=== PATIENT | female | born 1960 | race Caucasian/White ===

== ENCOUNTER → 2017-07-14 | Outpatient (CLI) | payer OTHER ==
[~2017-07-14] VITALS: Ht 152.4 cm; Wt 83.0 kg
[~2017-07-14] MED LIST: ADULT LOW DOSE81 MG PO; ADVIL PM CAPLE1 EACH PO; ANTACID500 MG PO; ASPIRIN EC325 M1 PO; AZOR 10-20 MG1 EACH PO; BRINTELLIX5 MG PO; BUMEX2 MG PO; CALCIUM LIQUID PO; CELEXA40 MG PO; COZAAR 50 MG TA50 M2 PO; COZAAR 50 MG TA50 MG PO; CYCLOBENZAPRINE10 MG PO; CYMBALTA30 MG PO; DEMADEX20 MG PO; EFFEXOR XR150 MG PO; EFFEXOR XR75 MG PO; FISH OIL 1,001000 M2 PO; FISH OIL 1,001000 MG PO; FUROSEMIDE 20 M20 M1 PO; FUROSEMIDE 20 M20 MG PO; GALZIN25 MG PO; HYDROCODON-ACE1 EAC5 PO; IBUPROFEN 400400 M2 PO; LASIX PO; MELATONIN3 MG PO; MELATONIN5 M4 PO; MS CONTIN15 MG PO; MULTIVITAMINS PO; NORCO 10-325 T1 EACH PO; NORCO 5-325 TA1 EACH PO; NORMAL SALINE FL5 ML; NORVASC 5 MG TAB5 MG PO; ONDANSETRON HCL4 M2 PO; OXYCODONE-APAP1 EAC6 PO; POTASSIUM CHLO20 ME1 PO; POTASSIUM20 PO; PRILOSEC40 MG PO; PROTONIX40 M2 PO; VICODIN PO; VITAMIN D34000 UNIT PO; XANAX 0.25 MG0.25 MG PO
--- NOTE | ~2017-07-14 | HPC ---
[facility] [place] [address] PAIN MANAGEMENT CONSULTATION Name: CRISTOBAL PELAYO GORDON Room #: REG [facility] [place].#: [id number] Admission: 07/14/17 Attend Phys: Reno Blackburn MD Discharge: Date of : 60 Report #: [id number] THIS REPORT FOR: //name// CC: Germán Sneed DO Reno Blackburn DATE OF SERVICE: 07/14/2017 CHIEF COMPLAINT: Chronic diffuse pain. The patient is a 56-year-old whom I am seeing today at the request of Dr. Sneed. He would like our assessment for managing her medication with chronic intractable pain. She has longstanding pain involving nearly all of her joints. I have asked her if she has seen a wind technician because by description today her diffuse arthritic pain sounds like a rheumatologic disorder, perhaps even polymyalgia rheumatica. She says she has started Dr. Dukes. She has been offered methotrexate in the past, but found no benefit. She has not taken a biologic. She says she does not want to continue seeing Dr. Dukes, but I have suggested that she find another wind technician to help manage these pains. This may be well psoriatic arthritis, although she has no rashes at this time consistent. She describes herself as an active person. She has tried other medications; however, nonsteroidal anti-inflammatory drugs are contraindicated and she has been told by her hotel recreational facilities manager, Dr. Fowler, that she should not take them. She also has a history of gastritis and has had esophageal reflux with narrowing and has required dilatation. For that reason, she has been placed on opioid pain medication as a considerable lower risk for toxicity due to risks of the anti-inflammatories. Prior to that, she was tried on Cymbalta with mixed benefits and has also had trials with gabapentin. She has a history of depression and is currently on 2 antidepressants, which will be reviewed. MEDICATIONS: Hydrocodone 10/325 she takes 1 tablet every 4 hours, Cymbalta 30 mg daily, Trintellix 5 mg daily, omeprazole, potassium, multivitamins. ALLERGIES: COMPAZINE CAUSES A RASH, LATEX CAUSES SWELLING AND SHE HAD SOME RESPIRATORY ISSUES. PAST MEDICAL HISTORY: Possible psoriatic arthritis though this is not confirmed by record. She has a history of type 2 diabetes, anemia, hypertension, gastritis, esophagitis and chronic depression. She suffers from osteoarthritis. PAST SURGICAL HISTORY: Cholecystectomy, herniorrhaphy, appendectomy, tonsillectomy, hysterectomy, shoulder surgery following trauma, gastric bypass, lumbar surgery with laminectomy. She had an exploratory surgery for adhesions [address] [address] PAIN MANAGEMENT CONSULTATION Name: CRISTOBAL PELAYO KANNANKELECHI Room #: REG [facility].#: [id number] Admission: 07/14/17 Attend Phys: Reno Blackburn MD Discharge: Date of : 60 Report #: [id number] causing blockage of the intestine. SOCIAL HISTORY: She denies use of tobacco or alcohol. She is . 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 She has had to take time off from work. She is not currently seeking disability benefits. REVIEW OF SYSTEMS: Completed by the patient. The 12-point review is reviewed individually with the patient. She has a history of mitral valve prolapse, loss of appetite, change in bowel movements and intermittent abdominal pain. She suffers from peptic ulcer and nocturia. She has chronic depression and has been treated with medication and counseling. PHYSICAL EXAMINATION: GENERAL: She is a pleasant 56-year-old female. She appears deconditioned. VITAL SIGNS: Her blood pressure is 137/89, heart rate 73, respirations 16, O2 sat 100%. She is 5 feet tall, 83 kg that gives her a BMI of 35.0. NEUROLOGICAL: She moves independently from sitting to standing position. She requires use of her arms to stand. She walks down the hens[place] with an antalgic gait. CHEST: Clear, without wheezing. CARDIAC: Normal with regular rhythm with no appreciable murmur. I could not hear her mitral regurgitation murmur described. ABDOMEN: Soft. EXTREMITIES: Examination of joints reveals bilateral shoulder, elbow, wrist, hip and knee pain. She also has pain in her elbows and tenderness. There are no effusions noted. There are no psoriatic rashes noted. She has minimal pain in the soft tissue to suggest fibromyalgia. IMPRESSION: Diffuse arthropathies. This may be polymyalgia rheumatica, psoriatic arthritis, I am not certain. I would like for her to follow up with another wind technician if she does not want to see Dr. Dukes and I have recommended Dr. Ritchie Rose. We discussed at length her use of opioid medication. She uses medications effectively; however, her current MME use is at 60 morphine milligram equivalents per day. I have agreed to provide her with that dose, but will work to titrate her dose below 50 MME. The importance of safeguarding all medications was reviewed. The issues of the CDC guideline to provide us with guidance were reviewed. An initial buccal drug screen was performed today and will be reviewed before her next visit. One month of medication was provided. We talked about our written opioid agreement. Informed consent for opioid treatment and medication treatment was reviewed in detail, the patient signed the agreement. I will contact with Dr. Sneed. She understands that no opioids will be received from other physicians. [address] [address] PAIN MANAGEMENT CONSULTATION Name: GITACRISTOBAL GORDON Room #: ELISE Hendrix#: [id number] Admission: 07/14/17 Attend Phys: Reno Blackburn MD Discharge: Date of : 60 Report #: [id number] Followup visit planned in 1 month. <ELECTRONICALLY SIGNED> By: Reno Blackburn MD 07/27/17 1640 [id number] Reno Blackburn MD /nt
[2017-07-14 13:43] VITALS: BP 137/89
== END ==
LOC: PAIN 01-10 07:12
DX: L40.50 Arthropathic psoriasis, unspecified (principal); M35.3 Polymyalgia rheumatica; G89.29 Other chronic pain; E11.9 Type 2 diabetes mellitus without complications; I10 Essential (primary) hypertension; F32.9 Major depressive disorder, single episode, unspecified

== ENCOUNTER → 2017-08-08 | Outpatient (CLI) | payer OTHER ==
[~2017-08-08] VITALS: Ht 152.4 cm; Wt 83.7 kg
[~2017-08-08] MED LIST changes: +ALDACTONE50 MG PO; +FOLIC ACID1 MG PO; +LASIX 20 MG TAB20 MG PO; +METHOTREXATE 22.5 MG PO; +VITAMIN D50000 UNIT PO
--- NOTE | ~2017-08-08 | HPC ---
[facility] [place] [address] [address] PAIN MANAGEMENT CONSULTATION Name: CRISTOBAL PELAYO KANNANKELECHI Room #: REG [facility].#: [id number] Admission: 08/08/17 Attend Phys: Reno Blackburn MD Discharge: Date of : 60 Report #: [id number] THIS REPORT FOR: //name// CC: Dr. Germán Blackburn DATE OF SERVICE: 08/08/2017 Followup visit for chronic pain. The patient returns to Pain Clinic today. I have agreed to provide her medication under terms of a written agreement. She has signed a contract or an agreement today. Her pain medication has been helpful in allowing her to remain functional. 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 She is hopeful that she can continue to do so with continued use of medication. I reviewed the discussion from the dictation of 07/14/2017. She signed an opioid agreement. We have decided to transition her from hydrocodone 10/325 six tablets daily to oxycodone 7.5 four tablets daily for a total of 30 morphine milligram equivalents. This will be equivalent to 45 morphine milligram equivalence, which will be a reduction from her daily dose of hydrocodone, which is currently calculated at 60 morphine milligram equivalents. Plan to see her back in the Pain Clinic to assess this change in medication and a followup visit is scheduled. Prescriptions were provided along with dated release. We will assess her progress at that time. <ELECTRONICALLY SIGNED> By: Reno Blackburn MD 09/05/17 1408 1612 1945 Reno Blackburn MD /nt
[2017-08-08 11:22] VITALS: BP 149/84
== END ==
LOC: PAIN 07:18
DX: G89.29 Other chronic pain (principal)

== ENCOUNTER → 2017-09-05 | Outpatient (CLI) | payer OTHER ==
[~2017-09-05] VITALS: Ht 152.4 cm; Wt 84.3 kg
[~2017-09-05] MED LIST changes: -ALDACTONE50 MG PO; -FOLIC ACID1 MG PO; -LASIX 20 MG TAB20 MG PO; -METHOTREXATE 22.5 MG PO; -VITAMIN D50000 UNIT PO
--- NOTE | ~2017-09-05 | HPC ---
[facility] [place] [address] [place] [address] PAIN MANAGEMENT CONSULTATION Name: CRISTOBAL PELAYO Room #: REG [facility].#: [id number] Admission: 09/05/17 Attend Phys: Reno Blackburn MD Discharge: Date of : 60 Report #: [id number] THIS REPORT FOR: //name// CC: Germán Blackburn DATE OF SERVICE: 09/05/2017 Followup visit for chronic osteoarthritis pain. Hugo White returns to pain clinic today for 1-month followup visit. I recently initiated her on an opioid agreement with our clinic. We have completed a urine drug screen which shows appropriate for previous medicine hydrocodone. We transitioned her off hydrocodone to oxycodone 7.5 four tablets a day for a total of 30 mg or 45 morphine milligram equivalents. She is doing okay with that. Her pain score is a 7, constant aching, but she has been able to continue to work and continue with household activities. Pain is made worse with weather, moving and she is grateful for the pain medication and ice, both of which aid in relieving some pain. Other problems include hypertension. She has some problems with gastritis and history of ulcers and is cautious about nonsteroidal anti-inflammatory drugs. She suffered from a peptic ulcer at one point. She has multiple joint diseases and is going to see Dr. Ritchie celaya about her psoriatic arthritis. She suffered from depression, but seems fine today. She is not currently on a treatment. HOME MEDICATIONS: Reviewed and reconciled from the electronic medical record. There have been no changes. PHYSICAL EXAMINATION: GENERAL: Pleasant, alert and oriented, without signs of depression, anxiety or overmedication. VITAL SIGNS: Blood pressure 139/79, heart rate 76, respirations 16. BMI is 36.3. Multiple joint arthralgias reported. IMPRESSION: 1. Chronic pain with diffuse arthropathies. 2. Management of high risk medications under terms of written opioid agreement within the CDC guidelines under 50 morphine milligram equivalents. 3. History of depression, anxiety. PLAN: Medications were renewed at current doses described above for 1 month and [facility] [address] [place] [address] PAIN MANAGEMENT CONSULTATION Name: GITACRISTOBAL Room #: REG [facility] Hendrix#: [id number] Admission: 09/05/17 Attend Phys: Reno Blackburn MD Discharge: Date of : 60 Report #: [id number] then refill prescription provided at 4 and 8 weeks. Followup visit planned in 90 days. By: [id number] Reno Blackburn MD /nt
[2017-09-05 11:12] VITALS: BP 139/79
== END ==
LOC: PAIN 07:16
DX: M19.90 Unspecified osteoarthritis, unspecified site (principal); F11.90 Opioid use, unspecified, uncomplicated; F32.9 Major depressive disorder, single episode, unspecified; F41.9 Anxiety disorder, unspecified

== ENCOUNTER → 2017-11-03 | Outpatient (CLI) | payer OTHER ==
[~2017-11-03] VITALS: Ht 154.9 cm; Wt 84.8 kg
[~2017-11-03] MED LIST changes: +FOLIC ACID1 MG PO; +METHOTREXATE 22.5 MG PO; +VITAMIN D50000 UNIT PO
--- NOTE | ~2017-11-03 | HPC ---
[facility] [place] [address] PAIN MANAGEMENT CONSULTATION Name: CRISTOBAL PELAYO Room #: REG [facility].#: [id number] Admission: 11/03/17 Attend Phys: Reno Blackburn MD Discharge: Date of : 60 Report #: [id number] THIS REPORT FOR: //name// CC: JAJA Blackburn DATE OF SERVICE: 11/03/2017 Followup visit for chronic osteoarthritis and psoriatic arthritis. The patient returns to pain clinic today in followup for her oxycodone. I provided with 4 oxycodone 7.5 tablets per day for a total of 30 oxycodone mg or 45 MME. She is doing reasonably well. Her pain scores with medication 4/10. This is manageable. 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 She works 4 hours a week. On days where she has overdone it, she sometimes cannot get out of bed that happens about once every 1-[address] Rose who diagnosed psoriatic arthritis and began her on methotrexate. We discussed potential benefits and risks of this medication. We outlined the hepatorenal and pulmonary toxicities as well as the hematopoietic effects of methotrexate. Dr. Rose will follow these potential side effects and complications of the medication carefully. We also discussed the biologics which may be helpful for her in the future. We talked importantly about her CDC guidelines and opioid agreement. She will safeguard all medications as discussed. She has no side effects. She is grateful for the pain relief that she receives. She has no evidence of addiction or risks of addiction. Her ORT score is 1 for depression. Pain is mostly in her joints and is diffuse involving almost all of her joints, particularly large joints. MEDICATIONS AND ALLERGIES: Reviewed and reconciled. They are on the electronic medical record. PHYSICAL EXAMINATION: Blood pressure 106/79, heart rate 68. BMI is 35.4. She is pleasant, alert and oriented, without signs of depression, anxiety or overmedication. Multiple joints are tender including shoulders, hands, elbows, knees, hips. She walks normally. She is not a fall risk. IMPRESSION: 1. Psoriatic arthritis 2. History of osteoarthritis. 3. Management of high risk medication oxycodone under terms of an opioid [address] [address] PAIN MANAGEMENT CONSULTATION Name: CRISTOBAL PELAYO GORDON Room #: REG [facility].#: [id number] Admission: 11/03/17 Attend Phys: Reno Blackburn MD Discharge: Date of : 60 Report #: [id number] agreement. She is on 45 morphine milligram equivalents a day with oxycodone 7.5/325 four tablets daily. 4. History of depression and anxiety, currently in remission. She has been aided by [facility]. Followup visit planned in 3 months. Dated prescriptions were released. Reviewed the results of her buccal drug screen from 07/15/2017. By: [id number] MD mejia Hunter
[2017-11-03 10:04] VITALS: BP 106/79
== END ==
LOC: PAIN 09-27 13:40
DX: L40.50 Arthropathic psoriasis, unspecified (principal); Z79.899 Other long term (current) drug therapy

== ENCOUNTER → 2018-01-23 | Outpatient (CLI) | payer OTHER ==
[~2018-01-23] VITALS: Ht 154.9 cm; Wt 88.3 kg
--- NOTE | ~2018-01-23 | HPC ---
[facility] [address] [address] PAIN MANAGEMENT CONSULTATION Name: CRISTOBAL PELAYO Room #: REG [facility].#: [id number] Admission: 01/23/18 Attend Phys: Reno Blackburn MD Discharge: Date of : 60 Report #: [id number] THIS REPORT FOR: //name// CC: Germán Blackburn DATE OF SERVICE: 01/23/2018 Followup visit for chronic pain. The patient is here today in followup for medication management of her chronic joint pain. She has psoriatic arthritis and also carries a diagnosis of osteoarthritis. She follows with Dr. Ritchie Rose who manages some of her medication and because of her use of opioids she is seen in our clinic to be treated under terms of written opioid agreement. She reports that she continues to have daily pain at an intensity of about 4-5 with medication. She is grateful for the relief that it provides her to drop it to this number. 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 Without the benefit of good pain control offered by her medication she does not feel that she would be able to work at all. She denies any significant side effects, even constipation is not an issue. She understands the importance of managing her medicine carefully and diversion of medication has been felt to be the primary source of illegal use of medication. She keeps all of her medication under lock and husain and is respectful of the benefits as well as the risks that they provide. She describes her pain as generalized through many joints, particularly involving her hips and knees. When the pain is severe, it often involves her legs and she has trouble with ambulation. All medications are reviewed and reconciled, there have been no significant changes. Allergies also reviewed. There has been no interval history. No hospitalizations. No Emergency Room visits. We reviewed her [facility] PDMP, which shows that all of her medications and opioids have been provided through our clinic since August. I did note that Dr. Linton, her surgeon, provided her with 7 days of hydrocodone in the perioperative period. There have been no other long-term prescribers. [address] [address] PAIN MANAGEMENT CONSULTATION Name: CRISTOBAL PELAYO Room #: REG [facility]#: [id number] Admission: 01/23/18 Attend Phys: Reno Blackburn MD Discharge: Date of : 60 Report #: [id number] I reviewed with her today the CDC guidelines and she is receiving a total of 45 morphine milligram equivalents. PHYSICAL EXAMINATION: She is pleasant, alert and oriented, without signs of overmedication or depression or anxiety. Her blood pressure is 113/73, heart rate 70. She is 5 feet 1 inch with a BMI of 36.8. Weight loss discussed. She moves and ambulates without difficulty. She has tenderness throughout multiple joints, particularly large joints, shoulders, elbows, knees and hips. Range of motion is adequate. IMPRESSION: 1. Psoriatic arthritis. 2. Osteoarthritis. 3. Management of high risk medications under terms of written opioid agreement. I have reviewed her [address] Linton in August and in June. She will not receive additional opioids outside of our practice going forward. A followup visit is scheduled in the pain clinic in 3 months. Dated prescriptions were released. By: [id number] Reno Blackburn MD /nt
[2018-01-23 09:13] VITALS: BP 113/73
== END ==
LOC: PAIN 06:56
DX: M17.0 Bilateral primary osteoarthritis of knee (principal); G89.29 Other chronic pain; L40.50 Arthropathic psoriasis, unspecified; Z79.891 Long term (current) use of opiate analgesic

== ENCOUNTER → 2018-04-03 | Outpatient (CLI) | payer OTHER ==
[~2018-04-03] VITALS: Ht 154.9 cm; Wt 90.4 kg
[~2018-04-03] MED LIST changes: +ALDACTONE50 MG PO; +LASIX 20 MG TAB20 MG PO
--- NOTE | ~2018-04-03 | HPC ---
[facility] [address] [address] PAIN MANAGEMENT CONSULTATION Name: CRISTOBAL PELAYO Room #: REG [facility].#: [id number] Admission: 04/03/18 Attend Phys: Reno Blackburn MD Discharge: Date of : 60 Report #: [id number] THIS REPORT FOR: //name// CC: Germán Blackburn DATE OF SERVICE: 04/03/2018 CHIEF COMPLAINT: Followup visit for chronic abdominal pain. HISTORY OF PRESENT ILLNESS: This is followup visit for the patient is here today reporting a pain score of 7/10 with medication. Her pain today is primarily arthritic. She complains of pain in multiple joints. It is worse with cold weather. She gets relief from her pain medications, getting off her feet, resting, and using ice. CURRENT MEDICATIONS: We provide for her under terms of written agreement are oxycodone 7.5, four tablets daily. This is 30 oxycodone mg per day or 45 morphine mg equivalents. All medications were reviewed and reconciled. She has not a fall risk. She is on no blood thinning medications. She denies use of tobacco or alcohol. She has some comorbidities including non-insulin dependent diabetes, psoriatic arthritis, which is primary issue for her joint pain. She has had a history of gastritis and stomach ulcers. She was cautioned about nonsteroidal anti-inflammatory drugs. She has had previous gastric bypass. PHYSICAL EXAMINATION: GENERAL: Blood pressure 121/76, heart rate 77, BMI is 37.7. EXTREMITIES: She has diffuse tenderness involving shoulders, hips, knees and ankles. GENERAL: Her affect is pleasant with no signs of depression, anxiety or overmedication or overmedication. IMPRESSION: 1. 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 2. Management of medications under terms of an opioid agreement. PLAN: I renewed 45 morphine milligram equivalents for her in terms of oxycodone 7.5 four times daily. She has promised that she will lock her medication carefully and keep it from others. Just she and her live together. All side effects have been addressed. I reviewed her [facility] PDMP and there are no red flag [facility] [address] [place] [address] PAIN MANAGEMENT CONSULTATION Name: CRISTOBAL PELAYO GORDON [facility] [id number] Admission: 04/03/18 Attend Phys: Reno Blackburn MD Discharge: Date of : 60 Report #: [id number] entries. All opioid medications provided by myself through our clinic. Followup visit planned in 3 months. By: [id number] Reno Blackburn MD /nt
[2018-04-03 11:06] VITALS: BP 121/76
== END ==
LOC: PAIN 06:56
DX: R10.9 Unspecified abdominal pain (principal); G89.4 Chronic pain syndrome; L40.52 Psoriatic arthritis mutilans; Z79.891 Long term (current) use of opiate analgesic; Z79.899 Other long term (current) drug therapy

== ENCOUNTER → 2018-06-22 | Outpatient (CLI) | payer OTHER ==
[~2018-06-22] VITALS: Ht 154.9 cm; Wt 93.8 kg
--- NOTE | ~2018-06-22 | HPC ---
[facility] [address] [place] [address] PAIN MANAGEMENT CONSULTATION Name: CRISTOBAL PELAYO GORDON Room #: REG [facility].#: [id number] Admission: 06/22/18 Attend Phys: Reno Blackburn MD Discharge: Date of : 60 Report #: [id number] THIS REPORT FOR: //name// CC: JAJA Burciaga DATE OF SERVICE: 06/22/2018 The patient returns to pain clinic today in followup. She says that she is doing reasonably well with her medication reducing her pain score to about 6/10. She says she has multiple arthritic joints and they all hurt in this cold weather. The pain medication reduces her pain to the level that she is able to manage and perform many of her activities of daily living that are a challenge for her. She does, however, have problems with her methotrexate. Since starting it she began experiencing a fog and asthenia. She feels lightheaded, fuzzy and has lack of energy. The patient also suffers from emotional problems, particularly depression. Winter is worse. The patient has a history of psoriatic arthritis for which she takes methotrexate. She has an appointment with Dr. Rose to discuss possibly going on to an immunologic agent. PHYSICAL EXAMINATION: GENERAL: She is morbidly obese. VITAL SIGNS: BMI is 39.1, blood pressure 137/96, heart rate is 72, respirations 16. EXTREMITIES: She has tenderness involving many joints. These include the large joints, shoulders, hips, knees as well as hands. There are no psoriatic plaques noted today. IMPRESSION: 1. Chronic intractable pain related to psoriasis and osteoarthritis. 2. Management of medications under terms of written opioid agreement. PLAN: She is currently taking Oxycodone 7.5 mg 4 times a day for an MME of 45. She will keep her medication under lock and husain. [facility] and there are no red flag entries. [facility] [address] [place] [address] PAIN MANAGEMENT CONSULTATION Name: CRISTOBAL PELAYO GORDON Room #: REG [facility].#: [id number] Admission: 06/22/18 Attend Phys: Reno Blackburn MD Discharge: Date of : 60 Report #: [id number] She is instructed to safeguard her medication carefully. She understands at my discretion we can perform drug screen and we will do so in the future. By: 1630 1651 Reno Blackburn MD /nt
[2018-06-22 10:51] VITALS: BP 137/96
--- NOTE | 2018-06-22 11:11 | NUR ---
Pain Clinic Assessment: 1. History of Osteoarthritis: ALL OVER History of Rheumatoid Arthritis: psoriatic arthritis 2. Height: 5 ft. 1 in. 154.9 cm. Weight: 206.8 lb. oz. 93.804 kg. Patient's BMI: 39.1 3. Vital Signs: BP: 137/96 Pulse: 72 Resp: 16 Temp: 02 Sat: 100 ECG Mon: 4. Pain Intensity: 6 5. Fall Risk: Dizziness: Y Needs help standing or walking: N Fallen in the last 3 months: Y Fall risk comments: 6. Patient on Blood Thinner: None 7. History of Hypertension: N 8. Opioid Therapy greater than 6 weeks: Y Opiate Contract Signed: 07/14/17 9. Risk Assessment Tool Provided: low-1 10. Functional Assessment Tool: 11. Recreational Drug Use: Never Drug Type: Tobacco Use: Never Smoker Tobacco Type: Amount or Packs/day: How Many Years: Alcohol Use: No Frequency: Quant:
== END ==
LOC: PAIN 07:13
DX: L40.52 Psoriatic arthritis mutilans (principal); M19.90 Unspecified osteoarthritis, unspecified site; G89.4 Chronic pain syndrome; Z79.891 Long term (current) use of opiate analgesic; Z79.899 Other long term (current) drug therapy

== ENCOUNTER → 2018-09-21 | Outpatient (CLI) | payer OTHER ==
[~2018-09-21] VITALS: Ht 154.9 cm; Wt 96.7 kg
[~2018-09-21] MED LIST changes: +XELJANZ XR11 MG PO
[2018-09-21 10:42] VITALS: BP 125/76
--- NOTE | 2018-09-21 10:54 | NUR ---
Pain Clinic Assessment: 1. History of Osteoarthritis: ALL OVER History of Rheumatoid Arthritis: psoriatic arthritis 2. Height: 5 ft. 1 in. 154.9 cm. Weight: 213.2 lb. oz. 96.707 kg. Patient's BMI: 40.3 3. Vital Signs: BP: 125/76 Pulse: 70 Resp: 16 Temp: 02 Sat: 100 ECG Mon: 4. Pain Intensity: 6 5. Fall Risk: Dizziness: N Needs help standing or walking: Y Fallen in the last 3 months: N Fall risk comments: 6. Patient on Blood Thinner: None 7. History of Hypertension: N 8. Opioid Therapy greater than 6 weeks: Y Opiate Contract Signed: 07/14/17 9. Risk Assessment Tool Provided: low-1 10. Functional Assessment Tool: 11. Recreational Drug Use: Never Drug Type: Tobacco Use: Never Smoker Tobacco Type: Amount or Packs/day: How Many Years: Alcohol Use: No Frequency: Quant: Pain Clinic Assessment: 1. History of Osteoarthritis: ALL OVER History of Rheumatoid Arthritis: psoriatic arthritis 2. Height: 5 ft. 1 in. 154.9 cm. Weight: 213.2 lb. oz. 96.707 kg. Patient's BMI: 40.3 3. Vital Signs: BP: 125/76 Pulse: 70 Resp: 16 Temp: 02 Sat: 100 ECG Mon: 4. Pain Intensity: 6 5. Fall Risk: Dizziness: N Needs help standing or walking: Y Fallen in the last 3 months: N Fall risk comments: 6. Patient on Blood Thinner: None 7. History of Hypertension: N 8. Opioid Therapy greater than 6 weeks: Y Opiate Contract Signed: 07/14/17 9. Risk Assessment Tool Provided: low-1 10. Functional Assessment Tool: 11. Recreational Drug Use: Never Drug Type: Tobacco Use: Never Smoker Tobacco Type: Amount or Packs/day: How Many Years: Alcohol Use: No Frequency: Quant:
--- NOTE | 2018-09-22 07:51 | HPC ---
[facility] [address] [place] [address] PAIN MANAGEMENT CONSULTATION Name: CRISTOBAL PELAYO GORDON Room #: [facility] [id number] Admission: 09/21/18 ������������������ Attend Phys: Renetta Sandoval Discharge: ������������������ Date of : 60 Report #: [id number] THIS REPORT FOR: //name// CC: Renetta Sneed DATE OF SERVICE: 09/21/2018 CHIEF COMPLAINT: Chronic knee pain and joint pain. HISTORY OF PRESENT ILLNESS: This is a very pleasant 57-year-old female who returns to the pain clinic today for refill of her medications. She suffers from ongoing joint pain, especially in her knees. She tells me it is aching, sharp pain, rating of a 6 today, worse with movement and activity. She tells me that medications are very helpful that work has also been very helpful for her. She does suffer from psoriatic arthritis and fibromyalgia. She does find that working, does keep her functioning better. She currently works 3-4 hours a day and enjoys this very much. She denies any problems with constipation or daytime sleepiness. She is using a cane today since she is having increasing knee pain after a trip to the zoo this week with her grandchild. She tells me that Dr. Linton gives her injections in her knees every couple of months and she is about due for one of those, she is trying to prolong a knee replacement. ALLERGIES: COMPAZINE, anxiety, LATEX. MEDICATIONS: XelJanz XR daily, oxycodone 7.5/325 p.r.n., spironolactone 50 mg daily, Lasix 20 mg b.i.d., folic acid daily, methotrexate 2.5 mg weekly, vitamin D3, Cymbalta 30 mg 3 times a day, Zofran p.r.n., Bumex 2 mg daily, potassium 20 mEq b.i.d., multivitamin daily. PQRS: 1. She suffers from psoriatic arthritis and is being treated for this. 2. Height is 5 feet 1 inch, weight is 213, BMI is 40. 3. Vital signs: Blood pressure 127/76, pulse is 70, respirations 16, oxygen sat is 100. 4. Pain score 6/10. 5. Dizziness, denies. She does use a cane for walking. has not fallen in the last 3 months. 6. The patient is not on any blood thinners. She does not take medicines for hypertension. 7. Opiate therapy was greater than 6 weeks; therefore, an opiate contract is on the chart. Her risk assessment tool is low. Her functional assessment is 48/70. 8. Recreational drug use, she denies. She is not a smoker, does not drink alcohol. [address] [address] PAIN MANAGEMENT CONSULTATION Name: CRISTOBAL PELAYO Room #: REG CL Simeon#: [id number] Admission: 09/21/18 ������������������ Attend Phys: Renetta Sandoval Discharge: ������������������ Date of : 60 Report #: [id number] We did check the prescription monitoring system on this patient. She feels appropriately with her medications. Her last prescription refill was 09/04/2018. We have not checked a drug screen in the past year and that was appropriate as well. She tells me she does safeguard her medications. PHYSICAL EXAMINATION: GENERAL: Alert and orientated, very pleasant 57-year-old female who appears her stated age. HEENT: Normocephalic, atraumatic. Extraocular eye muscles are intact. Mucous membranes are moist. EXTREMITIES: She has tenderness involving many joints, especially her knee today, left side greater than right. The patient also has tenderness in her shoulders, hips and knees and hands. There are no psoriatic plaques noted today. She does walk with a slightly antalgic gait using a cane. We reviewed the fact that opiate medications are being used to provide analgesia adequate to support activities of daily living, not attempting to achieve a specific pain score on the 0-10 Visual Analog Scale. The current opiate medications are providing sufficient analgesia to allow the patient to participate in activities of daily living. The patient is not exhibiting any aberrant behavior suggestive of drug diversion. The patient is not having any adverse reactions to medications. The patient is not suffering from daytime somnolence or mental acuity changes. The patient is managing opiate-induced constipation with appropriate yuac-azz-ibkncer agents and dietary considerations. The patient was counseled on concern for caution with operating a motor vehicle while using opiate medications. A physical exam was performed and the patient's functional status was evaluated. All patients with back pain were advised against the bed rest greater than 4 days and were advised to return to normal activities. Pain score assessment was noted and the treatment plan was reviewed with the patient. All current medications, both prescribed and OTC were reviewed and reconciled on the electronic medical record. Tobacco screening was accomplished and smoking cessation was advised when indicated. BMI was noted and diet/exercise modification was recommended for all patients following outside normal parameters. I reviewed with the patient today their responsibilities to safeguard prescription medications, reviewed their responsibility to utilize medications only as prescribed by the physician. They are to seek and receive pain medications only from 1 physician group ([facility]). They are to use 1 pharmacy and keep the clinic informed if they change pharmacies. Their responsibilities include making followup visits in a timely fashion and to avoid abrupt discontinuation of medication usage. Their responsibilities further include bringing their medications (bottles from the pharmacy with residual pills) to the visit for possible confirmation of pill counts and the patient [facility] [address] [place] [address] PAIN MANAGEMENT CONSULTATION Name: CRISTOBAL PELAYO Room #: REG CL Holly.#: [id number] Admission: 09/21/18 ������������������ Attend Phys: Renetta Sandoval Discharge: ������������������ Date of : 60 Report #: [id number] understands it is their responsibility to submit to random drug screens to ensure both that the medications prescribed are present, and that no other controlled substances are present. All prescriptions provided today were generated electronically. PLAN: 1. We discussed treatment options with the patient today. The patient is requesting a refill of her oxycodone scripts given for 7.5/325, #120; to be released today, 4-week and 8-week. The patient's morphine equivalent is 45 MME according to the CDC guidelines. 2. The patient will follow up in 3 months' time for refill of her medications. The patient seen with Dr. Reno Blackburn today who collaborated care. ��������������������������������������������� <ELECTRONICALLY SIGNED> ���������������������������������������� By: Renetta Sandoval ��������������������������������������������� 09/22/18 0751 [id number] Renetta Sandoval /nt
== END ==
LOC: PAIN 07:03
DX: G89.29 Other chronic pain (principal); M25.561 Pain in right knee; M25.562 Pain in left knee; L40.50 Arthropathic psoriasis, unspecified; Z88.1 Allergy status to other antibiotic agents; Z91.040 Latex allergy status; Z79.899 Other long term (current) drug therapy; Z79.891 Long term (current) use of opiate analgesic

== ENCOUNTER → 2018-12-27 | Outpatient (CLI) | payer OTHER ==
[~2018-12-27] VITALS: Ht 154.9 cm; Wt 90.4 kg
[2018-12-27 12:38] VITALS: BP 146/99
--- NOTE | 2018-12-27 12:42 | NUR ---
Pain Clinic Assessment: 1. History of Osteoarthritis: ALL OVER History of Rheumatoid Arthritis: psoriatic arthritis 2. Height: 5 ft. 1 in. 154.9 cm. Weight: 199.2 lb. oz. 90.357 kg. Patient's BMI: 37.7 3. Vital Signs: BP: 146/99 Pulse: 76 Resp: 18 Temp: 02 Sat: 100 ECG Mon: 4. Pain Intensity: 4-5 5. Fall Risk: Dizziness: N Needs help standing or walking: N Fallen in the last 3 months: N Fall risk comments: 6. Patient on Blood Thinner: None 7. History of Hypertension: N 8. Opioid Therapy greater than 6 weeks: Y Opiate Contract Signed: 07/14/17 9. Risk Assessment Tool Provided: low-1 10. Functional Assessment Tool: 11. Recreational Drug Use: Never Drug Type: Tobacco Use: Never Smoker Tobacco Type: Amount or Packs/day: How Many Years: Alcohol Use: No Frequency: Quant:
--- NOTE | 2018-12-28 15:57 | HPC ---
[facility] [place] [place] [address] PAIN MANAGEMENT CONSULTATION Name: CRISTOBAL PELAYO GORDON Room #: [facility] [id number] Admission: 12/27/18 ������������������ Attend Phys: Renetta Sandoval Discharge: ������������������ Date of : 60 Report #: [id number] THIS REPORT FOR: //name// CC: Renetta Sneed DATE OF SERVICE: 12/27/2018 CHIEF COMPLAINT: Chronic knee pain and joint pain. HISTORY OF PRESENT ILLNESS: This is a pleasant 58-year-old female who returns to the pain clinic today for refill of her medications that she uses to treat for her ongoing joint pain and knee pain. She tells me most of her pain is located in her bilateral knees today as well as her feet. She reports a pain score of 4/5. She tells me her pain is worse with movement and colder weather or damp weather. She did have a rough couple of months in the earlier part of this spring when it was raining quite a bit. Her pain has calmed down some, now she does use cold and heat as well as her medications and she finds them very beneficial. She denies any problems with constipation or oversedated feeling. ALLERGIES: COMPAZINE, LATEX. CURRENT LIST OF MEDICATIONS: Oxycodone 7.5/325 four times a day, Xeljanz XR 11 mg daily, spironolactone 50 mg daily, Lasix half a tablet b.i.d. 20 mg, folic acid, methotrexate 2.5 mg 4 tablets every week, vitamin D, Cymbalta 30 mg 3 times a day, Bumex 2 mg p.r.n., potassium 20 mEq b.i.d. and multivitamin. PQRS: 1. Patient suffers from psoriatic arthritis, is being treated for this as well as osteoarthritis. 2. Height is 5 feet 1 inch, weight is 199, BMI 37. 3. Vital signs: Blood pressure 146/99, pulse is 76, respirations 18, oxygen sat is 100. 4. Pain score is 4-5. 5. Fall risk. Denies dizziness, does not need help walking or standing, has not fallen in the last 3 months. 6. The patient does not have any dizziness. She does not need help walking or standing, has not fallen in the last 3 months. 7. The patient is not on any blood thinners and does not take medicine for blood pressure. 8. Opioid therapy is greater than 6 weeks; therefore, an opiate signed contract is on the chart. Her risk assessment tool is low. Functional assessment 48/70. 9. Recreational drug use, she denies. She is not a smoker [place] [address] PAIN MANAGEMENT CONSULTATION Name: CRISTOBAL PELAYO Room #: REG [facility] Hendrix#: [id number] Admission: 12/27/18 ������������������ Attend Phys: Renetta Sandoval Discharge: ������������������ Date of : 60 Report #: [id number] We did check the prescription monitoring system. The patient is filling appropriately for her medications. There is a drug screen on the chart. We will check this at her next visit as well since it has been greater than one year. PHYSICAL EXAMINATION: GENERAL: This is an alert and oriented, very pleasant 58-year-old female who appears her stated age, placing her current pain score today at 4-5/10. HEENT: Normocephalic, atraumatic. Extraocular eye muscles are intact. Mucous membranes are moist. EXTREMITIES: Tenderness in many joints, especially her knees bilateral and her left thumb today. She has tenderness in her shoulders, hips, knees and hands. There are no psoriatic plaques noted today. She does walk with a slightly antalgic gait. Does use a cane. IMPRESSION: 1. 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 2. Management of medications under terms of written opioid agreement. We reviewed the fact that opiate medications are being used to provide analgesia adequate to support activities of daily living, not attempting to achieve a specific pain score on the 0-10 Visual Analog Scale. The current opiate medications are providing sufficient analgesia to allow the patient to participate in activities of daily living. The patient is not exhibiting any aberrant behavior suggestive of drug diversion. The patient is not having any adverse reactions to medications. The patient is not suffering from daytime somnolence or mental acuity changes. The patient is managing opiate-induced constipation with appropriate vwrq-fvt-pivnful agents and dietary considerations. The patient was counseled on concern for caution with operating a motor vehicle while using opiate medications. A physical exam was performed and the patient's functional status was evaluated. All patients with back pain were advised against the bed rest greater than 4 days and were advised to return to normal activities. Pain score assessment was noted and the treatment plan was reviewed with the patient. All current medications, both prescribed and OTC were reviewed and reconciled on the electronic medical record. Tobacco screening was accomplished and smoking cessation was advised when indicated. BMI was noted and diet/exercise modification was recommended for all patients following outside normal parameters. I reviewed with the patient today their responsibilities to safeguard prescription medications, reviewed their responsibility to utilize medications only as prescribed by the physician. They are to seek and receive pain medications only from 1 physician group ([facility]). They are to use 1 pharmacy and keep the clinic informed if they change pharmacies. Their [address] [address] PAIN MANAGEMENT CONSULTATION Name: CRISTOBAL PELAYO Room #: REG [facility]#: [id number] Admission: 12/27/18 ������������������ Attend Phys: Renetta Sandoval Discharge: ������������������ Date of : 60 Report #: [id number] responsibilities include making followup visits in a timely fashion and to avoid abrupt discontinuation of medication usage. Their responsibilities further include bringing their medications (bottles from the pharmacy with residual pills) to the visit for possible confirmation of pill counts and the patient understands it is their responsibility to submit to random drug screens to ensure both that the medications prescribed are present, and that no other controlled substances are present. All prescriptions provided today were generated electronically. PLAN: 1. We discussed treatment options with the patient today. The patient finds her medicines are very beneficial. She is able to take 2 tablets a day on very good days, other day she has required at least 4 tablets a day. Scripts given for her oxycodone 7.5/325, #120 for release today 4-week and 8-week release. 2. This places the patient at 45 morphine milliequivalents, which is below the CDC guidelines that the doctors are trying to adhere to. The patient therefore is seen every 3 months. 3. The patient is seen today in collaboration with Dr. Willy Gould who did see the patient as well today. ��������������������������������������������� <ELECTRONICALLY SIGNED> ���������������������������������������� By: Renetta Sandoval ��������������������������������������������� 12/28/18 1557 [id number] Renetta ba
== END ==
LOC: PAIN 06:55
DX: M19.90 Unspecified osteoarthritis, unspecified site (principal); G89.4 Chronic pain syndrome; Z79.899 Other long term (current) drug therapy; Z79.891 Long term (current) use of opiate analgesic; Z91.040 Latex allergy status; Z88.8 Allergy status to other drugs, medicaments and biological substances

== ENCOUNTER → 2019-03-21 | Outpatient (CLI) | payer OTHER ==
[~2019-03-21] VITALS: Ht 154.9 cm; Wt 89.4 kg
[~2019-03-21] MED LIST changes: +BRINTELLIX20 MG PO; +OXYCODONE-APAP1 TAB PO
[2019-03-21 11:25] VITALS: BP 146/88
--- NOTE | 2019-03-21 11:33 | NUR ---
Pain Clinic Assessment: 1. History of Osteoarthritis: ALL OVER History of Rheumatoid Arthritis: psoriatic arthritis 2. Height: 5 ft. 1 in. 154.9 cm. Weight: 197.0 lb. oz. 89.359 kg. Patient's BMI: 37.2 3. Vital Signs: BP: 146/88 Pulse: 64 Resp: 18 Temp: 02 Sat: 100 ECG Mon: 4. Pain Intensity: 4-5 5. Fall Risk: Dizziness: N Needs help standing or walking: N Fallen in the last 3 months: N Fall risk comments: 6. Patient on Blood Thinner: None 7. History of Hypertension: N 8. Opioid Therapy greater than 6 weeks: Y Opiate Contract Signed: 07/14/17 9. Risk Assessment Tool Provided: low-1 10. Functional Assessment Tool: 11. Recreational Drug Use: Never Drug Type: Tobacco Use: Never Smoker Tobacco Type: Amount or Packs/day: How Many Years: Alcohol Use: No Frequency: Quant:
--- NOTE | 2019-03-23 12:47 | HPC ---
[facility] [address] [place] [address] PAIN MANAGEMENT CONSULTATION Name: CRISTOBAL PELAYO GORDON Room #: REG [facility]#: [id number] Admission: 03/21/19 Attend Phys: Renetta Sandoval Discharge: Date of : 60 Report #: [id number] THIS REPORT FOR: //name// CC: Renetta Sneed DO DATE OF SERVICE: 03/21/2019 CHIEF COMPLAINT: Chronic knee pain and joint pain. HISTORY OF PRESENT ILLNESS: This is a very pleasant 58-year-old female who returns to the pain clinic today for ongoing joint pain and refill of her medications. She reports a pain score of 4-5 today. Most of her pain is located in her lower extremities, though today she is also complaining of some neck pain that is radiating into her right arm with some numbness and tingling. She said her pain is worse with movement and cold weather. It is a sharp, achy pain, but her medications, resting and cold or heat are very beneficial. She reports driving in the car and walking long distance also increases her pain. She denies problems with constipation or daytime sleepiness as a result of her medications. ALLERGIES: COMPAZINE, LATEX. CURRENT LIST OF MEDICATIONS: Ambien p.r.n., Trintellix 20 mg daily, oxycodone 7.5/325 p.r.n., Xeljanz XR 11 mg daily, Aldactone 50 mg daily, Lasix 10 mg b.i.d., folic acid, methotrexate 2.5 mg weekly, vitamin D, potassium 20 mEq and multivitamin. PQRS: 1. She has osteoarthritis as well as psoriatic arthritis and is being treated for both. 2. Height is 5 feet 1 inch, weight is 197, BMI is 37. 3. Vital signs 146/88, pulse is 64, respirations 18, oxygen sat is 100. 4. Pain score 4-5. 5. Denies dizziness, does not need help walking or standing, has not fallen in the last 3 months. 6. The patient is not on any blood thinners and does not take medicine for hypertension. 7. Opioid therapy is greater than 6 weeks; therefore, an opioid signed contract is on the chart. Risk assessment tool is low. Functional assessment is 48/70. 8. Recreational drug use, she denies. She is not a smoker and does not drink alcohol. According to the prescription monitoring system, the patient is filling appropriately for her medication and is due for those to be filled today. [facility] [address] [place] [address] PAIN MANAGEMENT CONSULTATION Name: CRISTOBAL PELAYO GORDON Room #: REG [facility]#: [id number] Admission: 03/21/19 Attend Phys: Renetta Sandoval Discharge: Date of : 60 Report #: [id number] will check a random drug screen on this patient since it has been greater than one year. PHYSICAL EXAMINATION: GENERAL: This is alert and orientated, pleasant 58-year-old female who appears her stated age, placing her current pain score at 4-5/10 today. HEENT: Normocephalic, atraumatic. Extraocular eye muscles are intact. Mucous membranes are moist. MUSCULOSKELETAL: She has tenderness in multiple joints, especially her knees bilaterally today. She has tenderness in her shoulders, hips and hands. There are no psoriatic plaques noted today. She walks with a slightly antalgic gait and does use a cane. She has neck pain today that is radiating down into her right arm with numbness and tingly. Upper extremity strength judged to be 5/5 in all major muscle groups. IMPRESSION: 1. 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 2. Cervical radiculopathy. 3. Management of high risk medications under terms of written opioid agreement. We reviewed the fact that opiate medications are being used to provide analgesia adequate to support activities of daily living, not attempting to achieve a specific pain score on the 0-10 Visual Analog Scale. The current opiate medications are providing sufficient analgesia to allow the patient to participate in activities of daily living. The patient is not exhibiting any aberrant behavior suggestive of drug diversion. The patient is not having any adverse reactions to medications. The patient is not suffering from daytime somnolence or mental acuity changes. The patient is managing opiate-induced constipation with appropriate axpo-zyw-qaowven agents and dietary considerations. The patient was counseled on concern for caution with operating a motor vehicle while using opiate medications. A physical exam was performed and the patient's functional status was evaluated. All patients with back pain were advised against the bed rest greater than 4 days and were advised to return to normal activities. Pain score assessment was noted and the treatment plan was reviewed with the patient. All current medications, both prescribed and OTC were reviewed and reconciled on the electronic medical record. Tobacco screening was accomplished and smoking cessation was advised when indicated. BMI was noted and diet/exercise modification was recommended for all patients following outside normal parameters. I reviewed with the patient today their responsibilities to safeguard prescription medications, reviewed their responsibility to utilize medications only as prescribed by the physician. They are to seek and receive pain medications only from 1 physician group ([facility]). They are to use [address] [address] PAIN MANAGEMENT CONSULTATION Name: CRISTOBAL PELAYO Room #: REG [facility] Hendrix#: [id number] Admission: 03/21/19 Attend Phys: Renetta Sandoval Discharge: Date of : 60 Report #: [id number] pharmacy and keep the clinic informed if they change pharmacies. Their responsibilities include making followup visits in a timely fashion and to avoid abrupt discontinuation of medication usage. Their responsibilities further include bringing their medications (bottles from the pharmacy with residual pills) to the visit for possible confirmation of pill counts and the patient understands it is their responsibility to submit to random drug screens to ensure both that the medications prescribed are present, and that no other controlled substances are present. All prescriptions provided today were generated electronically. PLAN: 1. We discussed treatment options with the patient today. The patient feels like she is functioning as best as she believes is able with her current pain medicines. She has had to alter some of her lifestyle, but continues to be as active as possible with the help and benefit of her oxycodone. Scripts given today for oxycodone 7.5/325, #120 for release today, 4-week and 8-week. This places the patient at 45 morphine milliequivalents which is under the CDC guidelines. 2. The patient denies any problems with constipation or daytime sleepiness from her medications. 3. The patient is seen in collaboration with Dr. Reno Blackburn today. The patient will return in followup in 3 months. <ELECTRONICALLY SIGNED> By: Renetta Sandoval 03/23/19 1247 1403 [id number] Renetta ba
== END ==
LOC: PAIN 10:50
DX: M25.569 Pain in unspecified knee (principal); G89.4 Chronic pain syndrome; M54.12 Radiculopathy, cervical region; Z79.891 Long term (current) use of opiate analgesic; Z88.8 Allergy status to other drugs, medicaments and biological substances; Z91.040 Latex allergy status

== ENCOUNTER → 2019-06-18 | Outpatient (CLI) | payer OTHER ==
[~2019-06-18] VITALS: Ht 154.9 cm; Wt 89.0 kg
[2019-06-18 11:08] VITALS: BP 146/91
--- NOTE | 2019-06-18 11:24 | NUR ---
Pain Clinic Assessment: 1. History of Osteoarthritis: ALL OVER History of Rheumatoid Arthritis: psoriatic arthritis 2. Height: 5 ft. 1 in. 154.9 cm. Weight: 196.2 lb. oz. 88.996 kg. Patient's BMI: 37.1 3. Vital Signs: BP: 146/91 Pulse: 85 Resp: 16 Temp: 02 Sat: 100 ECG Mon: 4. Pain Intensity: 6 5. Fall Risk: Dizziness: N Needs help standing or walking: N Fallen in the last 3 months: N Fall risk comments: 6. Patient on Blood Thinner: None 7. History of Hypertension: N 8. Opioid Therapy greater than 6 weeks: Y Opiate Contract Signed: 07/14/17 9. Risk Assessment Tool Provided: low-1 10. Functional Assessment Tool: 11. Recreational Drug Use: Never Drug Type: Tobacco Use: Never Smoker Tobacco Type: Amount or Packs/day: How Many Years: Alcohol Use: No Frequency: Quant:
--- NOTE | 2019-06-19 08:20 | HPC ---
[facility] [address] [place] [address] PAIN MANAGEMENT CONSULTATION Name: CRISTOBAL PELAYO GORDON [facility] #: [facility] [id number] Admission: 06/18/19 Attend Phys: Renetta Sandoval Discharge: Date of : 60 Report #: [id number] THIS REPORT FOR: //name// CC: Renetta Blackburn MD DATE OF SERVICE: 06/18/2019 CHIEF COMPLAINT: Chronic knee pain and joint pain. HISTORY OF PRESENT ILLNESS: This is a very pleasant 58-year-old female who returns to the pain clinic today for refill of her medications. Today she is reporting a pain score of 6/10. She feels that her cervical pain is getting worse. She does suffer from spinal stenosis in most of her spine. She feels that her numbness and tingly in her hands has increased. She recently had had a trial of gabapentin from her primary care doctor and had stopped her Xeljanz, but it was not beneficial in helping her neuropathic pain, so she returned to her Xeljanz. She feels that the side effect of the gabapentin with retained fluid and weight increase was more than problematic to her. So at this time, she is not on any neuropathic medicines. Because of this, she has been dealing with increased pain. She feels also that the cold weather is making her pain worse. If she uses heat or ice at the end of the day as well as her medications, she feels that she is as controlled as she is able to be with her pain. ALLERGIES: COMPAZINE, LATEX. CURRENT LIST OF MEDICATIONS: Trintellix oxycodone 7.5/325 q.i.d., Xeljanz XR, Aldactone, Lasix, folic acid, methotrexate, vitamin D, Zofran, K-Dur, multivitamin. PQRS: 1. She has diffuse osteoarthritis as well as psoriatic arthritis. 2. Height is 5 feet 1 inch, weight is 196, BMI is 37. 3. Vital signs 146/91, pulse is 85, respirations 16, oxygen sat is 100. 4. Pain score 6/10. 5. Denies dizziness, does not need help walking or standing. Occasionally will use a cane, has not fallen in the last 3 months. 6. The patient is not on any blood thinners or medicine for hypertension. Her opioid therapy is greater than 6 weeks; therefore, an opioid signed contract is on the chart. 7. Risk assessment tool is low. Functional assessment is 48/70. 8. Recreational drug use, she denies. She is not a sm[place] [address] PAIN MANAGEMENT CONSULTATION Name: CRISTOBAL PELAYO GORDON Room #: REG [facility]#: [id number] Admission: 06/18/19 Attend Phys: Renetta Sandoval Discharge: Date of : 60 Report #: [id number] alcohol. According to the prescription monitoring system, the patient is filling appropriately for her medications. According to the CDC guidelines, her morphine mEq per day is 45 MME. She does safeguard her meds at all times. She is excited about having electronic prescription, so she does not have to worry about having a paper prescription at home in her possession. We did do a recent drug screen on the chart that was appropriate for her medications. It did show gabapentin and she explained that she had had that trial since it was not on our list of medications. PHYSICAL EXAMINATION: GENERAL: This is alert and orientated 58-year-old female who appears her stated age, placing her current pain score at 6/10. HEENT: Normocephalic, atraumatic. Extraocular eye muscles are intact. Mucous membranes are moist. MUSCULOSKELETAL: She has diffuse osteoarthritis of multiple joints, especially her knees, shoulders and hands. No psoriatic plaques noted today. She does walk with an antalgic gait using a cane. She has cervical radiculopathy present today with numbness and tingling in her bilateral arms. Her upper extremity strength judged to be 5/5. She does walk with a slightly antalgic gait. IMPRESSION: 1. Chronic intractable pain related to her psoriatic arthritis. 2. Osteoarthritis. 3. Cervical radiculopathy. 4. Management of high risk medications under terms of written opioid agreement. PLAN: 1. We discussed treatment options with the patient today. The patient was unable to take her gabapentin that the requisition approver did give her a trial of due to increased weight due to increase in fluid retention. I discussed with her possible neuropathic medicine of Lyrica. She is to discuss this with her physician to see if he would think she may be a candidate to trial that to help with some of her neuropathic pain. The patient is agreeable. 2. We will refill her oxycodone 7.5/325. She may take this up to 4 times a day. We will give her 3 months of this medication to fill monthly. We will e-sign these prescriptions. The patient is very excited about having this opportunity. She is always worried about losing her prescriptions. 3. We had done a drug screen that is appropriate for her narcotics at her last visit. The patient is reporting that it is not being covered by her insurance company. We did provide her with a billing office for [facility] to discuss this statement with them. [address] [address] PAIN MANAGEMENT CONSULTATION Name: CRISTOBAL PELAYO GORDON Room #: EL[facility] Hendrix#: [id number] Admission: 06/18/19 Attend Phys: Renetta Sandoval Discharge: Date of : 60 Report #: [id number] 4. The patient is seen in collaboration with Dr. Reno Blackburn. The patient will return in 3 months or as needed for prescription refills. <ELECTRONICALLY SIGNED> By: Renetta Sandoval 06/19/19819 [id number] Renetta Sandoval /nt
== END ==
LOC: PAIN 06:59
DX: Z76.0 Encounter for issue of repeat prescription (principal); G89.4 Chronic pain syndrome; L40.59 Other psoriatic arthropathy; M19.90 Unspecified osteoarthritis, unspecified site; M54.12 Radiculopathy, cervical region; Z79.891 Long term (current) use of opiate analgesic; Z79.899 Other long term (current) drug therapy

== ENCOUNTER → 2019-09-17 | Outpatient (CLI) | payer OTHER ==
[~2019-09-17] VITALS: Ht 154.9 cm; Wt 91.4 kg
[~2019-09-17] MED LIST changes: -XELJANZ XR11 MG PO; +XELJANZ5 MG PO
--- NOTE | ~2019-09-17 | HPC ---
[facility] [place] [address] PAIN MANAGEMENT CONSULTATION Name: CRISTOBAL PELAYO Room #: REG [facility] MigueKrisBree.#: [id number] Admission: 09/17/19 Attend Phys: Reno Blackburn MD Discharge: Date of : 60 Report #: [id number] THIS REPORT FOR: cc: Germán Sneed James L. DO Morgan, Richard L. MD ~ CC: Germán Gallardo DATE OF SERVICE: 09/17/2019 Followup visit for chronic intractable pain. HISTORY OF PRESENT ILLNESS: The patient is a delightful 58-year-old who I have been seeing for management of opioid medications and the treatment of chronic pain. She has had lifelong arthropathy. She related a story of pain that began when she was a child today. She now has pain involving multiple joints from head to toe. She follows with train crew member, Dr. Ritchie Rose. She has been diagnosed with a combination of psoriatic and osteoarthritis. Interestingly, she no longer has skin manifestations of psoriasis, but experienced them in her youth. Dr. Rose provides Xeljanz and sees her at regular intervals to adjust psoriatic medications. She is transitioning from once a day to twice a day dosing. She is also on methotrexate. I provided her with oxycodone 7.5/325, 120 tablets per month. She takes them roughly on a schedule every 6 hours. 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 She credits her pain relief from medications including the opioids with allowing her to continue to work. She also recognizes that work in and off itself and remaining active is therapeutic for the physical and the psychosocial components of chronic pain. She is grateful to be working and grateful that the medications allow her to continue. We discussed the three Ps of chronic pain; planning, prioritizing and pacing. She is doing that well carefully, managing her workload so that she does not overdo it, which can be a setback for her. She denies any side effects from her pain medications. She fills them at the same pharmacy. She is under an opioid agreement and we renewed the terms of that agreement today. We followed her prescriptions with the prescription drug monitoring program information and there are no unexpected entries. There are no other providers. She does take zolpidem to help with sleep and like most of our patient's sleep is a challenge. Socially, she seems pleasant, well adjusted. She and her are doing [facility] [address] [place] [address] PAIN MANAGEMENT CONSULTATION Name: CRISTOBAL PELAYO GORDON [facility] [id number] Admission: 09/17/19 Attend Phys: Reno Blackburn MD Discharge: Date of : 60 Report #: [id number] well, [place] the country. He has just retired from [employer] at the age of 70. She plans on continuing working. PHYSICAL EXAMINATION: She is 5 feet 1 inches, 201 pounds, BMI is 38.1, this is pretty stable for her. Her blood pressure 136/87, heart rate 79, respirations 18, and O2 sat 100%. Pain intensity 5/10, but can vary between 4 and 10/10, which it was last weekend. She thinks weather plays a role. She has tenderness in multiple joints including shoulders, hips, knees and hands. Her feet bother her quite a bit. She has multiple joints that are tender there. She describes pain related with weightbearing. She denies use of tobacco or alcohol. IMPRESSION: 1. Chronic intractable pain, osteoarthritis, psoriatic arthritis. 2. Management of high risk medications under terms of written opioid agreement. PLAN: Followup in the pain clinic at 3-month intervals. Medications were provided for her electronically to ____ Pharmacy in [place], [place]. Followup visit is scheduled in 3 months. Urine drug screens will be performed at my discretion. By: [id number] Reno Blackburn MD /nt
[2019-09-17 09:29] VITALS: BP 136/87
--- NOTE | 2019-09-17 09:44 | NUR ---
Pain Clinic Assessment: 1. History of Osteoarthritis: ALL OVER History of Rheumatoid Arthritis: psoriatic arthritis 2. Height: 5 ft. 1 in. 154.9 cm. Weight: 201.6 lb. oz. 91.445 kg. Patient's BMI: 38.1 3. Vital Signs: BP: 136/87 Pulse: 79 Resp: 18 Temp: 02 Sat: 100 ECG Mon: 4. Pain Intensity: 5 10 LAST WEEKEND 5. Fall Risk: Dizziness: N Needs help standing or walking: N Fallen in the last 3 months: N Fall risk comments: 6. Patient on Blood Thinner: None 7. History of Hypertension: N 8. Opioid Therapy greater than 6 weeks: Y Opiate Contract Signed: 07/14/17 9. Risk Assessment Tool Provided: low-2 10. Functional Assessment Tool: 50/ 11. Recreational Drug Use: Never Drug Type: Tobacco Use: Never Smoker Tobacco Type: Amount or Packs/day: How Many Years: Alcohol Use: No Frequency: Quant:
== END ==
LOC: PAIN 06:45
DX: G89.4 Chronic pain syndrome (principal); M19.90 Unspecified osteoarthritis, unspecified site; F11.20 Opioid dependence, uncomplicated; Z79.899 Other long term (current) drug therapy

== ENCOUNTER → 2019-12-13 | Outpatient (CLI) | payer OTHER | LOC: PAIN 08:10 | DX: M54.16 Radiculopathy, lumbar region (principal); M96.1 Postlaminectomy syndrome, not elsewhere classified; Z86.79 Personal history of other diseases of the circulatory system ==

== ENCOUNTER → 2020-01-14 | Outpatient (CLI) | payer OTHER ==
[~2020-01-14] VITALS: Ht 154.9 cm; Wt 88.5 kg
--- NOTE | ~2020-01-14 | HPC ---
[facility] [address] [place] [address] PAIN MANAGEMENT CONSULTATION Name: CRISTOBAL PELAYO Room #: REG [facility]#: [id number] Admission: 01/14/20 Attend Phys: Reno Blackburn MD Discharge: Date of : 60 Report #: [id number] THIS REPORT FOR: cc: Germán Sneed James L. DO Morgan, Richard L. MD ~ CC: Germán Blackburn DATE OF SERVICE: 01/14/2020 Followup visit for lumbar epidural steroid injection for lumbar radiculopathy. I saw the patient in consultation just 3 weeks ago. She has returned today for a lumbar epidural injection. Her pain has worsened since I saw her last and is classic for radiculopathy with shooting pain down the posterolateral aspect of both legs. Please refer to that dictation. Also a correction should be noted from that dictation which was signed. I mentioned she understands the importance of societal implications and it was listed as suicidal. Please make a note of that change on the prior record. I explained the procedure with some detail today including charts and demonstrations and she was given an opportunity to ask questions. She has no questions and is anxious to proceed. Informed consent was obtained. IMPRESSION: Lumbar radiculopathy, status post lumbar fusion at L4-L5 with interbody fusion and posterior pedicle screws and rods. PROCEDURE: Epidural steroid injection L3-L4 under fluoroscopic guidance. DESCRIPTION OF PROCEDURE: She was taken to fluoroscopic suite, placed prone, skin prepped with ChloraPrep. Skin anesthetized over the L3-L4 interspace. A 20-gauge Tuohy epidural needle advanced on the first attempt in the epidural space with loss of resistance. There was no blood or CSF aspirated. An excellent epidurogram was achieved. It was followed by 3 mL of 0.5% lidocaine mixed with 80 mg of triamcinolone. She tolerated the procedure well and was observed for 45 minutes and discharged. Followup visit planned in 1 month for possible repeat injection if necessary. She would certainly like to avoid any additional surgery. By: [id number] Reno Blackburn MD /nt
[2020-01-14 10:11] VITALS: BP 133/85
--- NOTE | 2020-01-14 10:16 | NUR ---
Pain Clinic Assessment: 1. History of Osteoarthritis: ALL OVER History of Rheumatoid Arthritis: psoriatic arthritis 2. Height: 5 ft. 1 in. 154.9 cm. Weight: 195.0 lb. oz. 88.452 kg. Patient's BMI: 36.9 3. Vital Signs: BP: 133/85 Pulse: 67 Resp: 18 Temp: 02 Sat: 100 ECG Mon: 4. Pain Intensity: 5 5. Fall Risk: Dizziness: N Needs help standing or walking: N Fallen in the last 3 months: N Fall risk comments: 6. Patient on Blood Thinner: None 7. History of Hypertension: Y 8. Opioid Therapy greater than 6 weeks: Y Opiate Contract Signed: 07/14/17 9. Risk Assessment Tool Provided: low-2 10. Functional Assessment Tool: 11. Recreational Drug Use: Never Drug Type: Tobacco Use: Never Smoker Tobacco Type: Amount or Packs/day: How Many Years: Alcohol Use: No Frequency: Quant:
== END ==
LOC: PAIN 07:03
PROVIDERS: ATTEND Anesthesiology Pain Medicine
DX: M54.16 Radiculopathy, lumbar region (principal); Z79.899 Other long term (current) drug therapy

== ENCOUNTER → 2020-02-11 | Outpatient (CLI) | payer OTHER ==
[~2020-02-11] VITALS: Ht 154.9 cm; Wt 87.5 kg
[~2020-02-11] MED LIST changes: +GABAPENTIN100 MG PO
--- NOTE | ~2020-02-11 | HPC ---
[facility] [place] [address] PAIN MANAGEMENT CONSULTATION Name: CRISTOBAL PELAYO Room #: [facility] [id number] Admission: 02/11/20 Attend Phys: Reno Blackburn MD Discharge: Date of : 60 Report #: [id number] THIS REPORT FOR: cc: Germán Sneed James L. DO Morgan, Richard L. MD ~ CC: Germán Blackburn DATE OF SERVICE: 02/11/2020 Followup visit for post-laminectomy with fusion, low back pain with radiculopathy. The patient returns to pain clinic today for chronic pain. 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 She has been able to continue working through the [employer] restrictions, but is having increased pain making her job more difficult. The pain is severe in her low back, radiates now on her right side following in the anterior lateral thigh distribution and into her medial aspect of her right knee. Last time, it was on the left. Injection performed in the epidural space at the top of her fusion with left paramedian, and she had almost complete relief there. She would like to repeat the injection with a right paramedian approach today. This is not a transforaminal but a midline paramedian approach. She has been having some increased weakness as well with falls. We discussed the importance of strengthening exercises, and she may want to consider some physical therapy if she can. She has psoriatic arthritis and has had a number of treatments with Dr. Linton. She is also on Xeljanz b.i.d. for her psoriatic arthritis. PHYSICAL EXAMINATION: VITAL SIGNS: She is 5 feet 1 inch, 192 pounds, BMI of 36.4. Blood pressure 134/87, heart rate 74, respirations 14, O2 sat 100. GENERAL: She independently moves from sitting to standing position. Her gait is antalgic. CHEST: Clear to auscultation. CARDIAC: Rhythm regular with no audible murmur. MUSCULOSKELETAL: Positive for tenderness across the scar in her low back. Limited range of motion. Tenderness in the muscles. Minimal discomfort of the sacroiliac joints. Straight leg raising on the left today is positive for an L3-L4 distribution. She has some generalized weakness in her lower extremities. IMPRESSION: 1. Chronic low back pain, status post lumbar fusion at L4-L5 with interbody [facility] [address] [place] [address] PAIN MANAGEMENT CONSULTATION Name: CRISTOBAL PELAYO GORDON Room #: REG [facility] Hendrix#: [id number] Admission: 02/11/20 Attend Phys: Reno Blackburn MD Discharge: Date of : 60 Report #: [id number] fusion and posterior pedicle screws and rods. 2. Management of high risk medications. I will provide her medications for under terms of written agreement and carry her medications through April. We spent 10 minutes today discussing her medications. She uses them carefully, no more than 4 oxycodone 7.5/325 per day and she takes them roughly on a schedule. This is an MME of 45. She denies any side effects. With medication, she is able to work and is grateful for that. Work is important to her, and she does not believe she would be able to work without the improvement in pain she gets from the oxycodone. She carefully safeguards her medication, and we reviewed her information on the prescription drug monitoring program. There are no unexpected entries. I have also reviewed our opioid agreement with her and she carefully safeguards her medications. I will perform urine drug screens at my discretion. PROCEDURE: Lumbar epidural injection, right L3-L4 under fluoroscopic guidance. She was taken to fluoroscopic suite, placed prone, skin prepped with ChloraPrep. Skin anesthetized over the L3-L4 interspace to the right of midline. A 20-gauge Tuohy epidural needle was advanced in the epidural space. There was no blood nor CSF aspirated. A 1 mL of Omnipaque was injected. Good spread of dye observed into the epidural space. It was then followed by 3 mL of 0.5% lidocaine with 80 mg of triamcinolone. She tolerated the procedure well. There were no complications. She was observed for 45 minutes and discharged. Followup visit planned in the pain clinic in April for medication management. By: [id number] Reno Blackburn MD /nt
[2020-02-11 09:07] VITALS: BP 134/87
--- NOTE | 2020-02-11 09:23 | NUR ---
Pain Clinic Assessment: 1. History of Osteoarthritis: ALL OVER History of Rheumatoid Arthritis: psoriatic arthritis 2. Height: 5 ft. 1 in. 154.9 cm. Weight: 192.8 lb. oz. 87.454 kg. Patient's BMI: 36.4 3. Vital Signs: BP: 134/87 Pulse: 74 Resp: 14 Temp: 02 Sat: 100 ECG Mon: 4. Pain Intensity: 4 5. Fall Risk: Dizziness: N Needs help standing or walking: N Fallen in the last 3 months: N Fall risk comments: 6. Patient on Blood Thinner: None 7. History of Hypertension: Y 8. Opioid Therapy greater than 6 weeks: Y Opiate Contract Signed: 07/14/17 9. Risk Assessment Tool Provided: low-2 10. Functional Assessment Tool: 11. Recreational Drug Use: Never Drug Type: Tobacco Use: Never Smoker Tobacco Type: Amount or Packs/day: How Many Years: Alcohol Use: No Frequency: Quant:
== END ==
LOC: PAIN 06:55
PROVIDERS: ATTEND Anesthesiology Pain Medicine
DX: M54.16 Radiculopathy, lumbar region (principal); M96.1 Postlaminectomy syndrome, not elsewhere classified; Z79.899 Other long term (current) drug therapy

== ENCOUNTER → 2020-05-01 | Outpatient (CLI) | payer OTHER ==
[~2020-05-01] VITALS: Ht 154.9 cm; Wt 91.6 kg
[2020-05-01 13:24] VITALS: BP 126/73
--- NOTE | 2020-05-01 13:46 | NUR ---
Pain Clinic Assessment: 1. History of Osteoarthritis: ALL OVER History of Rheumatoid Arthritis: psoriatic arthritis 2. Height: 5 ft. 1 in. 154.9 cm. Weight: 202.0 lb. oz. 91.627 kg. Patient's BMI: 38.2 3. Vital Signs: BP: 126/73 Pulse: 71 Resp: 16 Temp: 02 Sat: 99 ECG Mon: 4. Pain Intensity: 4 5. Fall Risk: Dizziness: N Needs help standing or walking: N Fallen in the last 3 months: N Fall risk comments: 6. Patient on Blood Thinner: None 7. History of Hypertension: Y 8. Opioid Therapy greater than 6 weeks: Y Opiate Contract Signed: 07/14/17 9. Risk Assessment Tool Provided: low-2 10. Functional Assessment Tool: 11. Recreational Drug Use: Never Drug Type: Tobacco Use: Never Smoker Tobacco Type: Amount or Packs/day: How Many Years: Alcohol Use: No Frequency: Quant:
--- NOTE | 2020-05-06 07:50 | HPC ---
[facility] [address] [place] [address] PAIN MANAGEMENT CONSULTATION Name: CINDY PELAYO GORDON Room #: REG [facility]#: [id number] Admission: 05/01/20 Attend Phys: Renetta Sandoval Discharge: Date of : 60 Report #: [id number] THIS REPORT FOR: cc: Germán Sneed James L. DO Hocker,Renetta ROMERO ~ CC: Renetta Blackburn MD DATE OF SERVICE: 05/01/2020 CHIEF COMPLAINT: Post-laminectomy with fusion, low back pain with radiculopathy. HISTORY OF PRESENT ILLNESS: The patient returns today for a followup visit and renewal of her medications. Cindy reports unfortunately, that the epidurals Dr. Blackburn provided for her in December and January were not beneficial in helping relieve her low back pain. Today, she reports her pain at 4/10, radiating down her leg as well as located in her back. It is a constant aching and burning sensation that is worse with activity and colder weather. Her pain medication does alleviate some of her back discomfort as well as resting, heat and ice. The patient reports no constipation issues as a result of her opioid medications. She is disappointed that the injections were not more effective, but is thankful for her opioid medications. She does continue to work and at times, driving is bothersome as well. ALLERGIES: COMPAZINE, LATEX. CURRENT LIST OF MEDICATIONS: Oxycodone 7.5/325, gabapentin, Trintellix, Xeljanz, Aldactone, Lasix, folic acid, vitamin D, Zofran, potassium and multivitamin. PQRS: 1. She has diffuse osteoarthritis as well as psoriatic arthritis that she is being treated for. 2. Height is 5 feet 1 inch, weight is 202. BMI is 38. 3. Blood pressure 126/73, pulse is 71, respirations 16, oxygen sat is 99%. 4. Pain score is 4/10. 5. Denies dizziness, does not need assistance with walking. Has not fallen in the last 3 months. 6. The patient is not on any blood thinners, but does take medicine for hypertension. 7. Opioid therapy is greater than 6 weeks; therefore, an opioid signed contract is on the chart. Risk assessment is low. Functional assessment is 47/70. 8. Recreational drug use, she denies. She is not a smoker and does not drink alcohol. [address] [address] PAIN MANAGEMENT CONSULTATION Name: CINDY PELAYO GORDON [facility] [id number] Admission: 05/01/20 Attend Phys: Renetta Sandoval Discharge: Date of : 60 Report #: [id number] According to the prescription monitoring system, the patient is filling appropriately. She is due to fill this weekend for her medications. Her morphine mEq is 45 MMEs per day. PHYSICAL EXAMINATION: GENERAL: This is an alert and orientated, very pleasant 59-year-old female, who appears her stated age, placing her current pain score at 4/10. She is a good historian. HEENT: Normocephalic, atraumatic. Extraocular eye muscles are intact. Mucous membranes are moist. MUSCULOSKELETAL: She moves independently from the sitting to standing position. She has an antalgic gait. She has weakness in her lower extremities of 4/5 bilaterally. She has tenderness in her lumbosacral region and has limited movement due to previous surgeries. Straight leg raising on the left is positive for the L3-L4 dermatomal distribution. IMPRESSION: 1. Chronic low back pain, status post lumbar fusion at the L4-L5 level. 2. Lumbar radiculopathy. 3. Complex medical management utilizing opioid medications. 4. Osteoarthritis and psoriatic arthritis. PLAN: 1. We discussed treatment options with the patient today. The patient is filling her medications appropriately in a timely fashion. We will have Dr. Reno Blackburn send her oxycodone 7.5/325, #120 for 3 months. 2. The patient does safeguard her meds at all times. 3. We discussed different modalities that she may try at home to help reduce some of her low back discomfort when doing her activities of daily living and general housework to see if they will aid in decreasing some of her pain. The patient will try to adapt to some of these different techniques to see if it is helpful. 4. We did discuss the importance of exercises and may consider physical therapy in the past due to help strengthen her lower extremities. The patient will call if she would like to start this and we will send a prescription to her therapist of choice. 5. The patient is seen today in collaboration with Dr. Reno Blackburn. She will return in 3 months and we will be available by phone. <ELECTRONICALLY SIGNED> By: Renetta Sandoval 05/06/20 0750 [id number] Renetta Sandoval /jose
== END ==
LOC: PAIN 06:49
PROVIDERS: ATTEND Clinical Nurse Specialist Adult Health
DX: M54.16 Radiculopathy, lumbar region (principal); L40.50 Arthropathic psoriasis, unspecified; Z98.1 Arthrodesis status; Z79.899 Other long term (current) drug therapy

== ENCOUNTER → 2020-07-28 | Outpatient (CLI) | payer OTHER ==
[~2020-07-28] VITALS: Ht 154.9 cm; Wt 85.5 kg
[2020-07-28 12:32] VITALS: BP 137/75
--- NOTE | 2020-07-28 12:45 | NUR ---
Pain Clinic Assessment: 1. History of Osteoarthritis: back stephen knees stephen feet History of Rheumatoid Arthritis: psoriatic arthritis 2. Height: 5 ft. 1 in. 154.9 cm. Weight: 188.4 lb. oz. 85.458 kg. Patient's BMI: 35.6 3. Vital Signs: BP: 137/75 Pulse: 69 Resp: 18 Temp: 02 Sat: 100 ECG Mon: 4. Pain Intensity: 4 5. Fall Risk: Dizziness: N Needs help standing or walking: N Fallen in the last 3 months: N Fall risk comments: 6. Patient on Blood Thinner: None 7. History of Hypertension: Y 8. Opioid Therapy greater than 6 weeks: Y Opiate Contract Signed: 07/14/17 9. Risk Assessment Tool Provided: low-2 10. Functional Assessment Tool: 11. Recreational Drug Use: Never Drug Type: Tobacco Use: Never Smoker Tobacco Type: Amount or Packs/day: How Many Years: Alcohol Use: No Frequency: Quant:
--- NOTE | 2020-07-29 08:24 | HPC ---
[facility] [address] [place] [address] PAIN MANAGEMENT CONSULTATION Name: CRISTOBAL PELAYO KANNANKELECHI Room #: [facility].#: [id number] Admission: 07/28/20 Attend Phys: Renetta Sandoval Discharge: Date of : 60 Report #: [id number] THIS REPORT FOR: cc: Germán Sneed James L. DO Hocker,Renetta ROMERO ~ DATE OF SERVICE: 07/28/2020 CHIEF COMPLAINT: Post-laminectomy with fusion, low back pain with radiculopathy. HISTORY OF PRESENT ILLNESS: This is a 59-year-old female who returns to the pain clinic today for renewal of her medications. Today, she is reporting a pain score of 4/10, most significantly in her right foot, so she does have ongoing low back pain, does radiate down her leg. She is also complaining of some neck pain with radiculopathy into her right hand. This pain is intermittent. She reports the cold weather they had recently did really aggravate her joints. She had significant increased pain during that time and mostly stayed in bed. She does use a cane with ambulation and finds that when her pain is increased, she definitely needs her cane with her at all times. Overall, she believes the medication as well as resting and heat have been beneficial for her. The patient does report today that she has been walking in her [address] several times a day. Since our last visit, she is down from 202 pounds to 188. She feels that this decrease in weight has made her joints feel better and she will continue to try and exercise more to decrease some of her weight and therefore hopefully some of her pain. She reports intermittently having injections from Dr. Linton in her knees and feet for her arthritic issues. ALLERGIES: COMPAZINE, LATEX. CURRENT LIST OF MEDICATIONS: Oxycodone 7.5/325, gabapentin, Trintellix, Xeljanz, Aldactone, Lasix, folic acid, vitamin D, Zofran, potassium, and multivitamin. PQRS: 1. She has arthritic issues in her back, knees and feet as well as being treated for psoriatic arthritis. 2. Height is 5 feet 1 inch, weight is 188, BMI is 35. 3. Vital signs 137/75, pulse is 69, respirations 18, oxygen sat is 100. 4. Pain score is 4/10. 5. Denies dizziness, does not need assistance with ambulation. Has not fallen in the last 3 months. 6. The patient is not on any blood thinners, but does [place] [address] PAIN MANAGEMENT CONSULTATION Name: CRISTOBAL PELAYO Room #: [facility].#: [id number] Admission: 07/28/20 Attend Phys: Renetta Sandoval Discharge: Date of : 60 Report #: [id number] 7. Opioid therapy is greater than 6 weeks; therefore, an opioid signed contract is on the chart. Risk assessment is low. Functional assessment is 47/70. 8. Recreational drug use, she denies. She is not a smoker and does not drink alcohol. According to the prescription monitoring system, the patient is due to fill her medications today, filling them in a timely fashion. Her morphine milliequivalent according to the CDC is 45 MME. PHYSICAL EXAMINATION: GENERAL: This is alert and orientated, well-developed, well-nourished 59-year-old female who appears her stated age, placing her current pain score today at 4/10. HEENT: Normocephalic, atraumatic. Extraocular eye muscles are intact. She is wearing a mask. EXTREMITIES: She has tenderness involving multiple joints including her shoulders, hips, knees and hands. There are no psoriatic plaques present today. She has a well-healed scar in her lumbosacral region of her back. She has discomfort that radiates from her lumbosacral region down her right leg to her foot. Cervical provocation testing was met with increase in pain that does radiate into her right arm to her about following this C6-C7 dermatomal distribution. We reviewed the fact that opiate medications are being used to provide analgesia adequate to support activities of daily living, not attempting to achieve a specific pain score on the 0-10 Visual Analog Scale. The current opiate medications are providing sufficient analgesia to allow the patient to participate in activities of daily living. The patient is not exhibiting any aberrant behavior suggestive of drug diversion. The patient is not having any adverse reactions to medications. The patient is not suffering from daytime somnolence or mental acuity changes. The patient is managing opiate-induced constipation with appropriate [id number] agents and dietary considerations. The patient was counseled on concern for caution with operating a motor vehicle while using opiate medications. A physical exam was performed and the patient's functional status was evaluated. All patients with back pain were advised against the bed rest greater than 4 days and were advised to return to normal activities. Pain score assessment was noted and the treatment plan was reviewed with the patient. All current medications, both prescribed and OTC were reviewed and reconciled on the electronic medical record. Tobacco screening was accomplished and smoking cessation was advised when indicated. BMI was noted and diet/exercise modification was recommended for all patients following outside normal parameters. I reviewed with the patient today their responsibilities to [address] [place] [address] PAIN MANAGEMENT CONSULTATION Name: CRISTOBAL PELAYO GORDON Room #: [facility]#: [id number] Admission: 07/28/20 Attend Phys: Renetta NICK Sandoval Discharge: Date of : 60 Report #: [id number] prescription medications, reviewed their responsibility to utilize medications only as prescribed by the physician. They are to seek and receive pain medications only from 1 physician group ( [facility]). They are to use 1 pharmacy and keep the clinic informed if they change pharmacies. Their responsibilities include making followup visits in a timely fashion and to avoid abrupt discontinuation of medication usage. Their responsibilities further include bringing their medications (bottles from the pharmacy with residual pills) to the visit for possible confirmation of pill counts and the patient understands it is their responsibility to submit to random drug screens to ensure both that the medications prescribed are present, and that no other controlled substances are present. All prescriptions provided today were generated electronically. IMPRESSION: 1. 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 2. Cervical radiculopathy. 3. Lumbar radiculopathy. 4. Management of high risk medications under terms of written opioid agreement. PLAN: 1. We discussed treatment options with the patient today. She believes her medications are beneficial in controlling her pain. We will continue her on her oxycodone 7.5, #120, releasing them today 4week an 8-week release. 2. We did discuss the patient is having some increasing radicular symptoms, especially from her cervical spine. She does take gabapentin 100 at bedtime. I discussed that she may possibly increase that medication from her primary care doctor under his direction or Dr. Reno Blackburn could possibly perform an epidural steroid injection at some time. The patient is going to try and deal with her symptoms, but will take those into consideration. 3. We did discuss the COVID vaccine in depth for quite a lengthy discussion. The patient lost a sister last summer to [employer]. At this time, she herself is leery about getting the vaccine, but is interested in the Augusto and Augusto vaccine that is one shot. She may consider this in the future, but at this point, she is not of age in the current phase to obtain an injection as it is. 4. The patient is seen today in collaboration with Dr. Reno Blackburn, encouraged the patient to keep active as she has lost 20 pounds since our last visit with her. The patient will return in 3 months. <ELECTRONICALLY SIGNED> By: Renetta Sandoval 07/29/20 0824 1333 22 Renetta Sandoval /jose
== END ==
LOC: PAIN 06:55
PROVIDERS: ATTEND Clinical Nurse Specialist Adult Health
DX: M54.12 Radiculopathy, cervical region (principal); G89.4 Chronic pain syndrome; L40.59 Other psoriatic arthropathy; Z79.891 Long term (current) use of opiate analgesic

== ENCOUNTER → 2020-10-23 | Outpatient (CLI) | payer OTHER ==
[~2020-10-23] VITALS: Ht 154.9 cm; Wt 82.4 kg
[2020-10-23 12:24] VITALS: BP 151/81
--- NOTE | 2020-10-23 12:31 | NUR ---
Pain Clinic Assessment: 1. History of Osteoarthritis: back stephen knees stephen feet History of Rheumatoid Arthritis: psoriatic arthritis 2. Height: 5 ft. 1 in. 154.9 cm. Weight: 181.6 lb. oz. 82.373 kg. Patient's BMI: 34.3 3. Vital Signs: BP: 151/81 Pulse: 88 Resp: 18 Temp: 02 Sat: 100 ECG Mon: 4. Pain Intensity: 4 5. Fall Risk: Dizziness: N Needs help standing or walking: N Fallen in the last 3 months: N Fall risk comments: 6. Patient on Blood Thinner: None 7. History of Hypertension: Y 8. Opioid Therapy greater than 6 weeks: Y Opiate Contract Signed: 07/14/17 9. Risk Assessment Tool Provided: low-2 10. Functional Assessment Tool: 11. Recreational Drug Use: Never Drug Type: Tobacco Use: Never Smoker Tobacco Type: Amount or Packs/day: How Many Years: Alcohol Use: No Frequency: Quant:
== END ==
LOC: PAIN 10:37
PROVIDERS: ATTEND Clinical Nurse Specialist Adult Health
DX: M54.12 Radiculopathy, cervical region (principal); M54.16 Radiculopathy, lumbar region; G89.4 Chronic pain syndrome; K21.9 Gastro-esophageal reflux disease without esophagitis; L40.50 Arthropathic psoriasis, unspecified; Z79.891 Long term (current) use of opiate analgesic; Z79.899 Other long term (current) drug therapy; Z98.84 Bariatric surgery status

== ENCOUNTER → 2021-01-15 | Outpatient (CLI) | payer OTHER ==
[~2021-01-15] VITALS: Ht 154.9 cm; Wt 80.3 kg
[2021-01-15 10:17] VITALS: BP 162/95
--- NOTE | 2021-01-15 10:24 | NUR ---
Pain Clinic Assessment: 1. History of Osteoarthritis: back stephen knees stephen feet History of Rheumatoid Arthritis: psoriatic arthritis 2. Height: 5 ft. 1 in. 154.9 cm. Weight: 177.0 lb. oz. 80.287 kg. Patient's BMI: 33.5 3. Vital Signs: BP: 162/95 Pulse: 67 Resp: 16 Temp: 02 Sat: 100 ECG Mon: 4. Pain Intensity: 4 5. Fall Risk: Dizziness: N Needs help standing or walking: N Fallen in the last 3 months: N Fall risk comments: 6. Patient on Blood Thinner: None 7. History of Hypertension: Y 8. Opioid Therapy greater than 6 weeks: Y Opiate Contract Signed: 07/14/17 9. Risk Assessment Tool Provided: low-1 10. Functional Assessment Tool: 11. Recreational Drug Use: Never Drug Type: Tobacco Use: Never Smoker Tobacco Type: Amount or Packs/day: How Many Years: Alcohol Use: No Frequency: Quant:
== END ==
LOC: PAIN 09:24
PROVIDERS: ATTEND Clinical Nurse Specialist Adult Health
DX: M54.16 Radiculopathy, lumbar region (principal); G89.29 Other chronic pain; M54.5 Low back pain; M19.90 Unspecified osteoarthritis, unspecified site; L40.50 Arthropathic psoriasis, unspecified; Z79.891 Long term (current) use of opiate analgesic; Z88.8 Allergy status to other drugs, medicaments and biological substances; Z91.040 Latex allergy status

== ENCOUNTER → 2021-04-06 | Outpatient (CLI) | payer OTHER ==
[~2021-04-06] VITALS: Ht 154.9 cm; Wt 76.8 kg
[2021-04-06 10:23] VITALS: BP 128/90
--- NOTE | 2021-04-06 10:34 | NUR ---
Pain Clinic Assessment: 1. History of Osteoarthritis: back stephen knees stephen feet History of Rheumatoid Arthritis: psoriatic arthritis 2. Height: 5 ft. 1 in. 154.9 cm. Weight: 169.4 lb. oz. 76.839 kg. Patient's BMI: 32.0 3. Vital Signs: BP: 128/90 Pulse: 80 Resp: 20 Temp: 02 Sat: 100 ECG Mon: 4. Pain Intensity: 4 5. Fall Risk: Dizziness: N Needs help standing or walking: N Fallen in the last 3 months: N Fall risk comments: 6. Patient on Blood Thinner: None 7. History of Hypertension: Y 8. Opioid Therapy greater than 6 weeks: Y Opiate Contract Signed: 07/14/17 9. Risk Assessment Tool Provided: low-1 10. Functional Assessment Tool: 11. Recreational Drug Use: Never Drug Type: Tobacco Use: Never Smoker Tobacco Type: Amount or Packs/day: How Many Years: Alcohol Use: No Frequency: Quant:
== END ==
LOC: PAIN 07:09
PROVIDERS: ATTEND Clinical Nurse Specialist Adult Health
DX: M43.26 Fusion of spine, lumbar region (principal); M54.16 Radiculopathy, lumbar region; M19.09 Primary osteoarthritis, other specified site; Z88.8 Allergy status to other drugs, medicaments and biological substances; Z79.899 Other long term (current) drug therapy

== ENCOUNTER → 2021-06-29 | Outpatient (CLI) | payer OTHER ==
[~2021-06-29] VITALS: Ht 154.9 cm; Wt 72.2 kg
[2021-06-29 13:12] VITALS: BP 124/76
--- NOTE | 2021-06-29 13:33 | NUR ---
Pain Clinic Assessment: 1. History of Osteoarthritis: back stephen knees stephen feet History of Rheumatoid Arthritis: psoriatic arthritis 2. Height: 5 ft. 1 in. 154.9 cm. Weight: 159.2 lb. oz. 72.213 kg. Patient's BMI: 30.1 3. Vital Signs: BP: 124/76 Pulse: 81 Resp: 16 Temp: 02 Sat: 100 ECG Mon: 4. Pain Intensity: 5 5. Fall Risk: Dizziness: N Needs help standing or walking: N Fallen in the last 3 months: N Fall risk comments: 6. Patient on Blood Thinner: None 7. History of Hypertension: Y 8. Opioid Therapy greater than 6 weeks: Y Opiate Contract Signed: 07/14/17 9. Risk Assessment Tool Provided: low-1 10. Functional Assessment Tool: 11. Recreational Drug Use: Never Drug Type: Tobacco Use: Never Smoker Tobacco Type: Amount or Packs/day: How Many Years: Alcohol Use: No Frequency: Quant:
== END ==
LOC: PAIN 10:10
PROVIDERS: ATTEND Clinical Nurse Specialist Adult Health
DX: M54.16 Radiculopathy, lumbar region (principal); M48.061 Spinal stenosis, lumbar region without neurogenic claudication; M15.9 Polyosteoarthritis, unspecified; M54.2 Cervicalgia; Z79.899 Other long term (current) drug therapy; Z88.8 Allergy status to other drugs, medicaments and biological substances